=== PATIENT | female | born 1965 | race Caucasian/White ===

== ENCOUNTER 2020-01-16 22:16 | Emergency (ER) | payer BC ==
[2020-01-16 22:23] VITALS: BP 138/86; PULSE 69; RESP 17; TEMP 98.4
[2020-01-16] MEDS ORDERED: TOPICAL SKIN ADHESIVE 1 EACH AMP TOPICAL ONE (22:36)
--- NOTE | 2020-01-16 22:40 | ED ---
Fall HPI - General Chief Complaint: Fall Stated Complaint: Fall Time Seen by Provider: 01/16/20 22:23 Source: patient, EMS Mode of arrival: EMS - History of Present Illness Initial Comments: this patient is a 54-year-old woman who presents with complaint of right ankle pain after a fall. The patient states she was at work tonight at [employer] when she went around a corner and slipped on wet floor. She states that her right ankle inverted. She also struck the left side of her head. patient denies any loss of consciousness. No neurologic symptoms. No neck pain. No chest, back, abdomen or other extremity pain. she believes her last tetanus shot was just over a year ago. MD Complaint: fall Onset/Timin -: hour(s) Fall From: standing When Fall Occurred: just prior to arrival Fall Witnessed: yes, by bystander Place Fall Occurred: work Loss of Consciousness: none Prolonged Down Time?: no Symptoms Prior to Fall: none Location: head Location - Extremities: Right: Ankle Severity: moderate Quality: burning Context: tripped/slipped Associated Symptoms: denies - Related Data Allergies Allergy/AdvReac Type Severity Reaction Status Date / Time erythromycin base Allergy Anaphylaxis Verified 01/16/20 22:24 Review of Systems ROS Statement: Those systems with pertinent positive or pertinent negative responses have been documented in the HPI. ROS Other: All systems not noted in ROS Statement are negative. Constitutional: Denies: fever Eyes: Denies: eye pain ENT: Denies: ear pain, hearing loss, epistaxis Respiratory: Denies: cough, dyspnea Cardiovascular: Denies: chest pain, palpitations Gastrointestinal: Denies: abdominal pain, vomiting Genitourinary: Denies: dysuria Musculoskeletal: Reports: as per HPI, arthralgia. Denies: back pain, joint swelling Skin: Denies: rash Neurological: Denies: headache, weakness, numbness, confusion, vertigo Hematological/Lymphatic: Denies: easy bleeding Past Medical History Past Medical History: No Reported History History of Any Multi-Drug Resistant Organisms: None Reported Past Surgical History: No Surgical Hx Reported Past Psychological History: No Psychological Hx Reported Smoking Status: Never smoker Past Alcohol Use History: None Reported Past Drug Use History: None Reported General Exam Limitations: no limitations General appearance: alert, in no apparent distress Head exam: Present: normocephalic, other (there is an approximately 2 similar laceration to the left frontal scalp. No real swelling or bony tenderness.) Eye exam: Present: normal appearance. Absent: PERRL, EOMI, scleral icterus, conjunctival injection ENT exam: Present: normal oropharynx Neck exam: Present: normal inspection, full ROM. Absent: tenderness, meningismus Respiratory exam: Present: normal lung sounds bilaterally. Absent: respiratory distress, wheezes, rales, rhonchi, stridor Cardiovascular Exam: Present: regular rate, normal rhythm, normal heart sounds. Absent: systolic murmur, diastolic murmur, rubs, gallop GI/Abdominal exam: Present: soft. Absent: distended, tenderness, guarding, rebound, rigid, mass Extremities exam: Present: normal inspection, normal capillary refill. Absent: pedal edema, calf tenderness Back exam: Present: normal inspection. Absent: CVA tenderness (R), CVA tenderness (L), vertebral tenderness Neurological exam: Present: alert, oriented X3, CN II-XII intact. Absent: motor sensory deficit Skin exam: Present: warm, dry, normal color, other (laceration as above). Absent: rash Course Vital Signs 01/16/20 22:18 Temperature 98.4 F Pulse Rate 69 Respiratory 17 Rate Blood Pressure 138/86 O2 Sat by Pulse 100 Oximetry Disposition Clinical Impression: Fall, Right ankle sprain, Head injury Disposition: HOME SELF-CARE Condition: Good Instructions (If sedation given, give patient instructions): Head Injury (ED), Ankle Sprain (ED) Is patient prescribed a controlled substance at d/c from ED?: No Referrals: Tin Roberts MD [Primary Care Provider] - 1-2 days
--- NOTE | 2020-01-16 22:55 | XR ---
EXAMINATION TYPE: XR ankle complete RT DATE OF EXAM: 01/16/2020 COMPARISON: NONE HISTORY: Fall. Injury. TECHNIQUE: 3 views FINDINGS: Ankle mortise is anatomic. I see no fracture nor dislocation. There are plantar and Mariela s calcaneal spurs. IMPRESSION: Calcaneal spurring. No fracture.
[2020-01-16] MEDS ORDERED: IBUPROFEN 600 MG TAB PO STA (22:56)
== END 2020-01-16 23:24 | disposition home or self-care (01) ==
LOC: EC 22:16
DX: S93.401A Sprain of unspecified ligament of right ankle, initial encounter (principal); S09.90XA Unspecified injury of head, initial encounter; Z88.1 Allergy status to other antibiotic agents; X50.1XXA Overexertion from prolonged static or awkward postures, initial encounter; Y92.69 Other specified industrial and construction area as the place of occurrence of the external cause; Y99.0 Civilian activity done for income or pay
CPT/HCPCS: 73610; 99283; 29515; L4350